=== PATIENT | male | born 1980 | race Caucasian/White ===

== ENCOUNTER 2023-06-27 15:10 | Emergency (ER) | payer OTHER ==
[~2023-06-27] VITALS: Ht 177.8 cm; Wt 83.9 kg
[2023-06-27 15:12] VITALS: BP 124/70; RESP 17; TEMP 97.4; O2SAT 98
[2023-06-27] MEDS ORDERED: ATA25 PO (17:00)
[2023-06-27 17:29] VITALS: BP 124/70; PULSE 66; RESP 17; TEMP 97.4; O2SAT 98
== END 2023-06-27 17:30 | disposition home or self-care (01) ==
LOC: MED 15:10
DX: R00.2 Palpitations (principal); F41.0 Panic disorder [episodic paroxysmal anxiety]; Z79.899 Other long term (current) drug therapy
CPT/HCPCS: 93005; 99283